=== PATIENT | female | born 1980 | race Caucasian/White ===

== ENCOUNTER 2021-03-10 08:39 | Inpatient (IN) | payer OTHER ==
[2021-03-10] MEDS ORDERED: SODIUM CHLORIDE 0.9% 500 ML INFUS.BAG IV ONE (09:40)
[2021-03-10 10:42] LABS: BASO % 0.4 % (0-2.0); EOS % 0.2 % (0-4.5); HEMATOCRIT 32.5 % (32.4-45.2); LYMPH % 6.7 % (8-40); MCH 31.6 pg (25.7-33.7); MCHC 33.7 g/dl (32.0-36.0); MEAN CELL VOLUME 93.8 fl (80-96); MEAN PLT VOLUME 7.9 fl (7.5-11.1); MONO % 5.1 % (3.8-10.2); NEUT % 87.6 % (42.8-82.8); PLATELET COUNT 285 10^3/uL (134-434); RBC 3.47 M/mm3 (3.60-5.2); RDW 13.8 % (11.6-15.6); WHITE BLOOD COUNT 13.9 K/mm3 (4.0-10.0)
[2021-03-10 11:00] LABS: CALCIUM 8.3 mg/dL (8.5-10.1); CHLORIDE 107 mmol/L (98-107); SODIUM 140 mmol/L (136-145)
[2021-03-10 11:01] LABS: ALBUMIN 3.5 g/dl (3.4-5.0); ANION GAP 5 MMOL/L (8-16); BLOOD UREA NITROGEN 10.4 mg/dL (7-18); CO2 27 mmol/L (21-32); GLUCOSE,RANDOM 81 mg/dL (74-106)
[2021-03-10 11:04] LABS: CREATININE 0.9 mg/dL (0.55-1.3); SGOT/AST 18 U/L (15-37); SGPT/ALT 22 U/L (13-61)
[2021-03-10 11:06] LABS: BILIRUBIN,TOTAL 0.3 mg/dL (0.2-1); TOT PROT 6.5 g/dl (6.4-8.2)
[2021-03-10 11:07] LABS: ALK PHOS 45 U/L (45-117)
[2021-03-10 11:26] LABS: EPI CELLS 5 /uL (0-25.1); HCG,QUALITATIVE URINE Negative; HYALINE CASTS 1 /uL (0-3.1); URINE APPEARANCE CLOUDY; URINE BACTERIA 173 /uL (0-1359); URINE BILIRUBIN NEGATIVE (NEGATIVE); URINE COLOR YELLOW; URINE GLUCOSE (UA) NEGATIVE (NEGATIVE); URINE KETONE NEGATIVE (NEGATIVE); URINE LEUK ESTERASE 3+ (NEGATIVE); URINE NITRITE NEGATIVE (NEGATIVE); URINE PROTEIN 1+ (NEGATIVE); URINE RBC 429 /uL (0-23.9); URINE UROBILINOGEN 0.2 mg/dL (0.2-1.0); URINE WBC 1431 /uL (0-25.8)
[2021-03-10] MEDS ORDERED: SODIUM CHLORIDE 0.9% 1000 ML INFUS.BAG IV ONE (16:25)
[2021-03-10] MEDS ORDERED: SODIUM CHLORIDE 1,000 ML IV SCH (17:45)
[2021-03-10] MEDS ORDERED: CEFTRIAXONE 1 GM in DEXTROSE 5%-WATER - 50 ML IVPB ONE (18:56)
[2021-03-10] MEDS ORDERED: CEFTRIAXONE 1 GM/50 ML BAG ONE (20:02)
[2021-03-11 04:43] VITALS: BMI 23.4
[2021-03-11] MEDS ORDERED: SODIUM CHLORIDE 1,000 ML IV SCH (09:48)
[2021-03-11] MEDS ORDERED: CEFTRIAXONE 500 MG in DEXTROSE 5%-WATER - 50 ML IVPB SCH (10:00)
[2021-03-11 10:47] LABS: HEMATOCRIT 30.4 % (32.4-45.2); HEMOGLOBIN 10.2 GM/dL (10.7-15.3); MCH 32.2 pg (25.7-33.7); MCHC 33.6 g/dl (32.0-36.0); MEAN CELL VOLUME 95.8 fl (80-96); MEAN PLT VOLUME 8.5 fl (7.5-11.1); PLATELET COUNT 250 10^3/uL (134-434); RBC 3.17 M/mm3 (3.60-5.2); RDW 13.7 % (11.6-15.6); WHITE BLOOD COUNT 6.6 K/mm3 (4.0-10.0)
[2021-03-11 11:15] LABS: BLOOD UREA NITROGEN 6.4 mg/dL (7-18); CALCIUM 7.9 mg/dL (8.5-10.1)
[2021-03-11 11:18] LABS: CREATININE 0.9 mg/dL (0.55-1.3)
[2021-03-11] MEDS ORDERED: cefTRIAXone SODIUM 1 GM VIAL ONE (11:38)
[2021-03-11] MEDS ORDERED: DEXTROSE 5%-WATER - 50 ML IVPB ONE (11:38)
[2021-03-11] MEDS: CEFTRIAXONE 1 GM in DEXTROSE 5%-WATER - 50 ML IVPB SCH (11:52)
[2021-03-11] MEDS ORDERED: ONDANSETRON 4 MG/2 ML VIAL IVPUSH PRN (17:00)
[2021-03-12] MEDS ORDERED: LEVOTHYROXINE NA 75 MCG TABLET (FP) PO SCH (07:00)
[2021-03-12] MEDS ORDERED: SODIUM CHLORIDE 1,000 ML IV SCH ×2 (08:02→11:01)
[2021-03-12 09:12] LABS: BASO % 0.9 % (0-2.0); EOS % 0.9 % (0-4.5); HEMATOCRIT 33.8 % (32.4-45.2); HEMOGLOBIN 11.5 GM/dL (10.7-15.3); LYMPH % 29.7 % (8-40); MCH 32.2 pg (25.7-33.7); MCHC 33.9 g/dl (32.0-36.0); MEAN CELL VOLUME 94.9 fl (80-96); MEAN PLT VOLUME 8.4 fl (7.5-11.1); MONO % 4.9 % (3.8-10.2); NEUT % 63.6 % (42.8-82.8); PLATELET COUNT 271 10^3/uL (134-434); RBC 3.57 M/mm3 (3.60-5.2); RDW 13.8 % (11.6-15.6); WHITE BLOOD COUNT 6.3 K/mm3 (4.0-10.0)
[2021-03-12] MEDS ORDERED: cefTRIAXone SODIUM 1 GM VIAL ONE (10:21)
[2021-03-12] MEDS ORDERED: DEXTROSE 5%-WATER - 50 ML IVPB ONE (10:21)
[2021-03-12] MEDS: CEFTRIAXONE 1 GM in DEXTROSE 5%-WATER - 50 ML IVPB SCH (10:23)
[2021-03-12] MEDS: ACETAMINOPHEN 325 MG TABLET (FP) PO PRN (10:25)
[2021-03-12 10:55] LABS: TOT PROT 6.6 g/dl (6.4-8.2)
[2021-03-12 10:56] LABS: ALBUMIN 3.4 g/dl (3.4-5.0); CALCIUM 8.7 mg/dL (8.5-10.1); CREATININE 0.7 mg/dL (0.55-1.3); PHOSPHOROUS 3.7 mg/dL (2.5-4.9)
[2021-03-12 10:57] LABS: MAGNESIUM 2.1 mg/dL (1.8-2.4)
[2021-03-12 11:00] LABS: BLOOD UREA NITROGEN 5.8 mg/dL (7-18)
[2021-03-12 11:05] LABS: BILIRUBIN,TOTAL 0.4 mg/dL (0.2-1)
[2021-03-13 09:00] LABS: BASO % 0.9 % (0-2.0); EOS % 1.1 % (0-4.5); HEMOGLOBIN 11.3 GM/dL (10.7-15.3); LYMPH % 24.6 % (8-40); MCH 32.3 pg (25.7-33.7); MCHC 34.3 g/dl (32.0-36.0); MEAN CELL VOLUME 94.1 fl (80-96); MEAN PLT VOLUME 8.7 fl (7.5-11.1); NEUT % 69.4 % (42.8-82.8); PLATELET COUNT 284 10^3/uL (134-434); RDW 13.5 % (11.6-15.6); WHITE BLOOD COUNT 7.6 K/mm3 (4.0-10.0)
[2021-03-13] MEDS ORDERED: DEXTROSE 5%-WATER - 50 ML IVPB ONE (09:10)
[2021-03-13] MEDS ORDERED: cefTRIAXone SODIUM 1 GM VIAL ONE (09:10)
[2021-03-13] MEDS: CEFTRIAXONE 1 GM in DEXTROSE 5%-WATER - 50 ML IVPB SCH (09:12)
[2021-03-13 09:17] LABS: ALBUMIN 3.4 g/dl (3.4-5.0); BLOOD UREA NITROGEN 7.1 mg/dL (7-18); CALCIUM 8.6 mg/dL (8.5-10.1)
[2021-03-13 09:18] LABS: MAGNESIUM 1.9 mg/dL (1.8-2.4)
[2021-03-13 09:19] LABS: CREATININE 0.7 mg/dL (0.55-1.3)
[2021-03-13 09:20] LABS: PHOSPHOROUS 3.7 mg/dL (2.5-4.9)
[2021-03-13 09:21] LABS: BILIRUBIN,TOTAL 0.4 mg/dL (0.2-1); TOT PROT 6.9 g/dl (6.4-8.2)
[2021-03-13] MEDS: ACETAMINOPHEN 325 MG TABLET (FP) PO PRN (14:09)
[2021-03-13] MEDS ORDERED: POLYETHYLENE GLYCOL (HEALTHYLAX) 3350 17 GM PACKET PO SCH (15:00)
[2021-03-13 17:53] VITALS: BP 100/62; PULSE 60; TEMP 98
== END 2021-03-13 19:42 | disposition home or self-care (01) | DRG 690 ==
LOC: JER 08:39 → JERBED 14:02 → J6S 23:35
PROVIDERS: ADMIT Internal Medicine; ATTEND Internal Medicine
DX: N39.0 Urinary tract infection, site not specified (principal); I44.0 Atrioventricular block, first degree; D64.9 Anemia, unspecified; E86.0 Dehydration; E03.9 Hypothyroidism, unspecified; R94.31 Abnormal electrocardiogram [ECG] [EKG]; R00.1 Bradycardia, unspecified; K59.00 Constipation, unspecified; I95.1 Orthostatic hypotension
CPT/HCPCS: 36415; 70450-TC; 70486-TC; 76775-TC; 76856-TC; 80048; 80053; 81003; 83605; 83735; 84100; 84443; 84484; 84703; 85025; 85027; 87040; 87086; 93005; 93010; 97116-GP; 97161-GP; 99285-25; C9803; U0003; U0005